=== PATIENT | female | born 1995 | race Caucasian/White ===

== ENCOUNTER → 2020-01-06 | Outpatient (CLI) | payer OTHER ==
[~2020-01-06] MED LIST: D3-5050000 IU PO; ESTRAC1 PO; MEDROXYPROGESTER5 M1 PO; NORDITROPI SC; QUALITY CHOICE10 M3 PO
[2020-01-06 11:59] LABS: ALBUMIN 3.6 gm/dl (3.1-4.5); ALKALINE PHOSPHATASE 43 U/L (45-117); BUN 16 mg/dl (7-24); CHLORIDE 106 mmol/L (98-107); CHOLESTEROL 178 mg/dL (<200); CREATININE 0.69 mg/dL (0.55-1.02); FREE T4 1.07 ng/dl (0.76-1.46); HDL CHOLESTEROL 51 mg/dl (40-60); LDL CHOLESTEROL 111 mg/dL (9-159); POTASSIUM 4.7 mmol/L (3.5-5.1); SGOT/AST 28 IU/L (3-35); SGPT/ALT 62 U/L (12-78); SODIUM 141 mmol/L (136-145); T3 UPTAKE 28 % (31-39); THYROXINE (T4) TOTAL 13.2 ug/dl (4.8-13.9); TOTAL PROTEIN 7.3 gm/dL (6.4-8.2); TRIGLYCERIDES 80 mg/dl (<150); VLDL CHOLESTEROL 16 mg/dL (6-40)
== END | disposition home or self-care (01) ==
LOC: LAB 10:34
PROVIDERS: Internal Medicine Endocrinology, Diabetes & Metabolism
DX: E11.69 Type 2 diabetes mellitus with other specified complication (principal); R94.6 Abnormal results of thyroid function studies; E55.9 Vitamin D deficiency, unspecified

== ENCOUNTER → 2021-04-16 | Outpatient (CLI) | payer OTHER ==
[2021-04-16 08:16] LABS: ALBUMIN 3.4 gm/dl (3.1-4.5); ALKALINE PHOSPHATASE 33 U/L (45-117); BUN 16 mg/dl (7-24); CHLORIDE 109 mmol/L (98-107); CHOLESTEROL 158 mg/dL (<200); CREATININE 1.04 mg/dL (0.55-1.02); FREE T4 1.07 ng/dl (0.76-1.46); LDL CHOLESTEROL 80 mg/dL (9-159); POTASSIUM 4.5 mmol/L (3.5-5.1); SGOT/AST 17 IU/L (3-35); SGPT/ALT 37 U/L (12-78); SODIUM 139 mmol/L (136-145); TOTAL PROTEIN 7.2 gm/dL (6.4-8.2); TRIGLYCERIDES 99 mg/dl (<150)
[2021-04-17 04:06] LABS: DHEA SULFATE 89.8 ug/dL (110.0-431.7); FOLLICLE STIMULATING HORMONE <0.3 mIU/mL (.); LUTEINIZING HORMONE <0.3 mIU/mL (.)
[2021-04-17 05:06] LABS: PROLACTIN 37.5 ng/mL (4.8-23.3)
[2021-04-17 09:06] LABS: CREATININE,URINE 79.3 mg/dL (Not Estab.)
[2021-04-17 22:05] LABS: HUMAN GROWTH HORMONE 4.3 ng/mL (0.0-10.0)
[2021-04-19 16:08] LABS: INSULIN-LIKE GROWTH FACTOR-1 74 ng/mL (101-347)
== END | disposition home or self-care (01) ==
LOC: LAB 07:23
PROVIDERS: ATTEND Internal Medicine Endocrinology, Diabetes & Metabolism
DX: E11.69 Type 2 diabetes mellitus with other specified complication (principal); E55.9 Vitamin D deficiency, unspecified; E23.0 Hypopituitarism

== ENCOUNTER → 2021-06-03 | Outpatient (CLI) | payer OTHER ==
[2021-06-03 08:54] LABS: FREE T4 1.06 ng/dl (0.76-1.46); THYROXINE (T4) TOTAL 15.6 ug/dl (4.8-13.9)
[2021-06-03 09:07] LABS: THYROID STIM HORMONE (HS) 6.04 uIU/ml (0.358-4.75)
[2021-06-04 04:06] LABS: TOTAL T3 (TT3) 143 ng/dL (71-180)
[2021-06-07 16:07] LABS: MONOMERIC PROLACTIN (ICMA) 15.4 ng/mL (.); PROLACTIN,SERUM (ICMA) 18.8 ng/mL (.)
[2021-06-10 22:05] LABS: FREE T4 BY DIALYSIS 1.2 ng/dL (.)
== END | disposition home or self-care (01) ==
LOC: LAB 08:16
PROVIDERS: ATTEND Internal Medicine Endocrinology, Diabetes & Metabolism
DX: R94.6 Abnormal results of thyroid function studies (principal); E11.65 Type 2 diabetes mellitus with hyperglycemia; R79.89 Other specified abnormal findings of blood chemistry

== ENCOUNTER → 2025-07-04 | Outpatient (CLI) | payer OTHER ==
[2025-07-04 11:54] LABS: BUN 21.0 mg/dl (9-23); LDL CHOLESTEROL 83.0 mg/dL (9-159); SGPT/ALT 35.0 U/L (5-49)
== END | disposition home or self-care (01) ==
LOC: LAB 10:37
PROVIDERS: ATTEND Internal Medicine
DX: E11.69 Type 2 diabetes mellitus with other specified complication (principal); E23.0 Hypopituitarism